=== PATIENT | male | born 1985 | race Caucasian/White ===

== ENCOUNTER 2021-02-06 10:07 | Emergency (ER) | payer MEDICAID ==
[~2021-02-06] VITALS: Ht 172.7 cm; Wt 76.2 kg
[2021-02-06 10:13] VITALS: BP 145/73
--- NOTE | 2021-02-06 10:21 | NUR ---
PATIENT AMBULATED TO BED 4.
--- NOTE | 2021-02-06 10:24 | NUR ---
Patient being evaluated by DR HAMPTON at bedside.
--- NOTE | 2021-02-06 10:36 | NUR ---
35 YEAR OLD FEMALE COMPLAINS OF NUMBNESS TO RIGHT ARM AND LEFT LEG DISCOMFORT X 3 DAYS. PT STATES HE HAD HAL AND HAL VACCINE 2 WEEKS AGO AND BELIEVES IT IS CAUSE. PT DENIES PAIN. PT AOX4, BREATHING EVEN AND UNLABORED, SKIN WARM AND DRY. BED IN LOWEST POSITION, SEMI-FOWLERS, LOCKED, BED RAIL UPX1 PMH - DENIES ALLERGIES - NKA
--- NOTE | 2021-02-06 10:49 | NUR ---
US tech at bedside for exam.
--- NOTE | 2021-02-06 12:28 | NUR ---
Patient resting in position of comfort. Respirations even/unlabored. Bed locked in lowest position, side rails x 1, call light in reach. All pt needs met at this time.
--- NOTE | 2021-02-06 12:30 | NUR ---
Dr. Can is reevaluating patient at bedside.
[2021-02-06] MEDS ORDERED: RIVA15TA1 PO (12:54)
--- NOTE | 2021-02-06 12:59 | NUR ---
Lab at bedside for blood draw
[2021-02-06 13:11] VITALS: BP 131/63
--- NOTE | 2021-02-06 13:11 | NUR ---
Patient discharged with v/s stable. Written and verbal after care instructions given and explained. Patient alert, oriented and verbalized understanding of instructions. Ambulatory with steady gait. All questions addressed prior to discharge. ID band removed. Patient advised to follow up with PMD. Rx of Xarelto given. Patient educated on indication of medication including possible reaction and side effects. Opportunity to ask questions provided and answered.
[2021-02-06 13:13] LABS: BASOPHILS # (AUTO) 0.1 K/uL (0.00-0.22); BASOPHILS % (AUTO) 0.8 % (0.0-2.0); EOSINOPHILS # (AUTO) 0.1 K/uL (0-0.4); EOSINOPHILS % (AUTO) 0.8 % (0.0-4.0); HEMATOCRIT 46.9 % (36-52); LYMPHOCYTES # (AUTO) 1.6 K/uL (2.0-11.5); LYMPHOCYTES % (AUTO) 15.6 % (20.5-51.1); MEAN CORPUSCULAR HEMOGLOBIN 32 pg (27-31); MEAN CORPUSCULAR HGB CONC 34 g/dL (33-37); MEAN CORPUSCULAR VOLUME 93.6 fL (80-94); MONOCYTES # (AUTO) 0.7 K/uL (0.8-1.0); MONOCYTES % (AUTO) 6.5 % (1.7-9.3); NEUTROPHILS # (AUTO) 7.8 K/uL (1.8-7.7); NEUTROPHILS % (AUTO) 76.3 % (42.2-75.2); PLATELET COUNT (AUTO) 211 K/uL (140-450); RED BLOOD CELL COUNT(AUTO) 5.01 MIL/uL (4.20-6.10); RED CELL DISTRIBUTION WIDTH 12.9 % (11.6-13.7); WHITE BLOOD COUNT (AUTO) 10.2 K/uL (4.8-10.8)
[2021-02-06 13:28] LABS: PROTHROMBIN TIME 9.7 secs (10.8-13.4)
[2021-02-06 13:31] LABS: ALBUMIN 3.7 g/dL (3.4-5.0); ANION GAP 10.3 (8-16); CARBON DIOXIDE 27.4 mmol/L (21-32); CREATININE 1.2 mg/dL (0.6-1.3); POTASSIUM 4.7 mmol/L (3.5-5.1); TOTAL BILIRUBIN 0.4 mg/dL (0.0-1.0)
== END 2021-02-06 13:11 | disposition home or self-care (01) ==
LOC: MED 10:07
DX: T88.0XXA Infection following immunization, initial encounter (principal); L03.116 Cellulitis of left lower limb
CPT/HCPCS: 36415; 80053; 85025; 85610; 93971; 99284